=== PATIENT | female | born 1980 | race Caucasian/White ===

== ENCOUNTER 2016-05-23 18:49 | Emergency (ER) | payer MEDICARE, MEDICAID ==
[2016-05-23 19:55] LABS: HCG URINE NEGATIVE (NEGATIVE)
== END 2016-05-23 21:21 | disposition home or self-care (01) ==
LOC: D.ER 18:49
PROVIDERS: Emergency Medicine
DX: S92.501A Displaced unspecified fracture of right lesser toe(s), initial encounter for closed fracture (principal); W01.0XXA Fall on same level from slipping, tripping and stumbling without subsequent striking against object, initial encounter; Y93.89 Activity, other specified; Y92.019 Unspecified place in single-family (private) house as the place of occurrence of the external cause; F17.200 Nicotine dependence, unspecified, uncomplicated; F41.9 Anxiety disorder, unspecified; F32.9 Major depressive disorder, single episode, unspecified; T79.A0XA Compartment syndrome, unspecified, initial encounter

== ENCOUNTER 2016-06-07 18:29 | Emergency (ER) | payer MEDICARE, MEDICAID | END 2016-06-07 20:42 | disposition home or self-care (01) | LOC: D.ER 18:29 | DX: M54.30 Sciatica, unspecified side (principal); M62.830 Muscle spasm of back; S39.012A Strain of muscle, fascia and tendon of lower back, initial encounter; W19.XXXA Unspecified fall, initial encounter; Y93.89 Activity, other specified; Y92.89 Other specified places as the place of occurrence of the external cause; F17.200 Nicotine dependence, unspecified, uncomplicated ==

== ENCOUNTER 2016-07-01 12:06 | Emergency (ER) | payer MEDICAID | END 2016-07-01 13:23 | disposition home or self-care (01) | LOC: D.ER 12:06 | DX: M54.5 Low back pain (principal); Z91.81 History of falling; T79.A0XA Compartment syndrome, unspecified, initial encounter; F32.9 Major depressive disorder, single episode, unspecified; F17.200 Nicotine dependence, unspecified, uncomplicated ==

== ENCOUNTER 2016-07-26 14:42 | Emergency (ER) | payer MEDICAID | END 2016-07-26 17:55 | disposition home or self-care (01) | LOC: D.ER 14:42 | DX: S60.042A Contusion of left ring finger without damage to nail, initial encounter (principal); X58.XXXA Exposure to other specified factors, initial encounter; Y93.89 Activity, other specified; Y92.89 Other specified places as the place of occurrence of the external cause; T79.A0XA Compartment syndrome, unspecified, initial encounter; F32.9 Major depressive disorder, single episode, unspecified; F17.200 Nicotine dependence, unspecified, uncomplicated ==

== ENCOUNTER 2017-04-22 16:56 | Emergency (ER) | payer SELFPAY ==
[2017-04-22 17:38] LABS: COLOR YELLOW (YELLOW)
[2017-04-22 17:41] LABS: APPEARANCE CLEAR (CLEAR); BILIRUBIN NEGATIVE (NEGATIVE); GLUCOSE NEGATIVE (NEGATIVE); KETONE NEGATIVE (NEGATIVE); NITRITE NEGATIVE (NEGATIVE); PROTEIN NEGATIVE (NEGATIVE); SPECIFIC GRAVITY 1.025 (1.005-1.020); UROBILINOGEN NORMAL (NORMAL)
[2017-04-22 17:47] LABS: EPITHELIAL CELLS 0-5 /hpf (0-5); RED CELLS - URINE OCC /hpf (0-5); WHITE CELLS - URINE 0-5 /hpf (0-5)
[2017-04-22 17:48] LABS: BACTERIA MODERATE /hpf (NONE SEEN)
[2017-04-22 18:37] LABS: HCG URINE NEGATIVE (NEGATIVE)
== END 2017-04-22 19:25 | disposition home or self-care (01) ==
LOC: D.ER 16:56
PROVIDERS: Family Medicine; Physician Assistant Medical
DX: K59.00 Constipation, unspecified (principal); N39.0 Urinary tract infection, site not specified

== ENCOUNTER 2017-06-05 19:50 | Emergency (ER) | payer SELFPAY | END 2017-06-05 22:17 | disposition home or self-care (01) | LOC: D.ER 19:50 | DX: J20.9 Acute bronchitis, unspecified (principal); J01.90 Acute sinusitis, unspecified; R09.89 Other specified symptoms and signs involving the circulatory and respiratory systems ==

== ENCOUNTER 2017-06-10 14:03 | Emergency (ER) | payer SELFPAY | END 2017-06-10 17:42 | disposition home or self-care (01) | LOC: D.ER 14:03 | DX: S39.012A Strain of muscle, fascia and tendon of lower back, initial encounter (principal); W01.0XXA Fall on same level from slipping, tripping and stumbling without subsequent striking against object, initial encounter; Y93.89 Activity, other specified; Y92.019 Unspecified place in single-family (private) house as the place of occurrence of the external cause; F17.200 Nicotine dependence, unspecified, uncomplicated ==

== ENCOUNTER 2017-06-28 17:01 | Emergency (ER) | payer SELFPAY | END 2017-06-28 18:30 | disposition home or self-care (01) | LOC: D.ER 17:01 | DX: J01.90 Acute sinusitis, unspecified (principal); J20.9 Acute bronchitis, unspecified; F17.200 Nicotine dependence, unspecified, uncomplicated ==

== ENCOUNTER 2017-07-24 19:18 | Emergency (ER) | payer SELFPAY | END 2017-07-24 22:15 | disposition home or self-care (01) | LOC: D.ER 19:18 | DX: M54.5 Low back pain (principal); M62.838 Other muscle spasm; M79.605 Pain in left leg; M79.604 Pain in right leg ==

== ENCOUNTER 2017-08-16 07:02 | Emergency (ER) | payer MEDICARE | END 2017-08-16 09:00 | disposition home or self-care (01) | LOC: D.ER 07:02 | DX: S09.93XA Unspecified injury of face, initial encounter (principal); W18.31XA Fall on same level due to stepping on an object, initial encounter; Y93.89 Activity, other specified; Y92.019 Unspecified place in single-family (private) house as the place of occurrence of the external cause; F17.200 Nicotine dependence, unspecified, uncomplicated ==

== ENCOUNTER 2017-10-17 17:28 | Emergency (ER) | payer MEDICARE ==
[~2017-10-17] VITALS: Ht 162.6 cm; Wt 65.9 kg
[2017-10-17 17:37] VITALS: Ht 162.6 cm; Wt 65.9 kg
[2017-10-17] MEDS ORDERED: CYMBALTA30 MG PO (17:38)
[2017-10-17] MEDS ORDERED: CHANTIX 1 MG TAB1 MG PO (17:39)
[2017-10-17 18:33] LABS: HCG URINE NEGATIVE (NEGATIVE)
[2017-10-17 18:37] LABS: BASOPHILS 0.5 % (0-2); HEMATOCRIT 38.6 % (36.0-48.0); IMMATURE GRANULOCYTES 0.2 % (0-5); LYMPHOCYTES 29.2 % (15-50); MCH 30.3 pg (26.0-34.0); MCHC 33.7 g/dL (31.0-37.0); MEAN PLATELET VOLUME 11.2 fL (7.4-10.4); MONOCYTES 10.7 % (2-11); NEUTROPHILS 57.4 % (40-80); PLATELET COUNT 229 10x3/uL (130-400); RBC 4.29 10x6/uL (4.00-5.40); RDW 13.8 % (11.5-14.5); WBC 5.5 10x3/uL (4.8-10.8)
[2017-10-17 18:42] LABS: ALBUMIN 3.8 g/dL (3.4-5.0); ALKALINE PHOSPHATASE 88 U/L (46-116); ALT (SGPT) 26 U/L (10-68); BILIRUBIN - TOTAL 0.21 mg/dL (0.2-1.3); CALC OSMOLALITY 271 mosm/kg (275-300); CALCIUM 8.4 mg/dL (8.5-10.1); CARBON DIOXIDE 26.9 mmol/L (21.0-32.0); CHLORIDE - SERUM 105 mmol/L (98-107); CREATININE - SERUM 0.7 mg/dL (0.6-1.3); GLUCOSE 75 mg/dL (74-106); POTASSIUM - SERUM 4.1 mmol/L (3.5-5.1); SODIUM 137 mmol/L (136-145); UREA NITROGEN 11 mg/dL (7-18); eGFR NON AFRICAN AMERICAN > 90 mL/min (90-120)
[2017-10-17 18:54] LABS: APPEARANCE CLEAR (CLEAR); BILIRUBIN NEGATIVE (NEGATIVE); COLOR YELLOW (YELLOW); GLUCOSE NEGATIVE (NEGATIVE); KETONE NEGATIVE (NEGATIVE); NITRITE NEGATIVE (NEGATIVE); PROTEIN NEGATIVE (NEGATIVE); SPECIFIC GRAVITY 1.025 (1.005-1.020); UROBILINOGEN NORMAL (NORMAL)
[2017-10-17 19:05] LABS: UDS - AMPHET NEGATIVE QUAL (NEGATIVE); UDS - BARB NEGATIVE QUAL (NEGATIVE); UDS - BENZO NEGATIVE QUAL (NEGATIVE); UDS - COCAINE NEGATIVE QUAL (NEGATIVE); UDS - OPIATE NEGATIVE QUAL (NEGATIVE); UDS - PCP NEGATIVE QUAL (NEGATIVE); UDS - THC NEGATIVE QUAL (NEGATIVE)
[2017-10-17] MEDS ORDERED: ROBAXIN500 MG PO (20:49)
[2017-10-17 23:00] VITALS: BP 122/80
== END 2017-10-17 21:33 | disposition home or self-care (01) ==
LOC: D.ER 17:28
PROVIDERS: Emergency Medicine
DX: N93.9 Abnormal uterine and vaginal bleeding, unspecified (principal); T79.A0XA Compartment syndrome, unspecified, initial encounter; X58.XXXA Exposure to other specified factors, initial encounter; F17.200 Nicotine dependence, unspecified, uncomplicated

== ENCOUNTER 2017-11-03 15:52 | Emergency (ER) | payer MEDICARE ==
[~2017-11-03] VITALS: Ht 162.6 cm; Wt 63.6 kg
[~2017-11-03 15:52] MED LIST: CHANTIX 1 MG TAB1 MG PO; CYMBALTA30 MG PO; ROBAXIN500 MG PO
[2017-11-03 15:56] VITALS: Ht 162.6 cm; Wt 63.6 kg
[2017-11-03] MEDS ORDERED: NEURONTIN 300300 MG PO (15:57)
[2017-11-03 16:23] LABS: BASOPHILS 0.2 % (0-2); EOSINOPHILS 0.7 % (0-7); HEMATOCRIT 46.2 % (36.0-48.0); HEMOGLOBIN 15.8 g/dL (12-16); IMMATURE GRANULOCYTES 0.3 % (0-5); LYMPHOCYTES 17.3 % (15-50); MCH 30.9 pg (26.0-34.0); MCHC 34.2 g/dL (31.0-37.0); MCV 90.2 fL (80.0-100.0); MONOCYTES 7.9 % (2-11); NEUTROPHILS 73.6 % (40-80); PLATELET COUNT 349 10x3/uL (130-400); RBC 5.12 10x6/uL (4.00-5.40); RDW 13.6 % (11.5-14.5); WBC 12.2 10x3/uL (4.8-10.8)
[2017-11-03 16:30] LABS: APPEARANCE TURBID (CLEAR); BACTERIA MODERATE /hpf (NONE SEEN); BILIRUBIN NEGATIVE (NEGATIVE); COLOR RED (YELLOW); EPITHELIAL CELLS 0-5 /hpf (0-5); GLUCOSE NEGATIVE (NEGATIVE); KETONE NEGATIVE (NEGATIVE); MUCUS <1+ /lpf (NONE SEEN); NITRITE NEGATIVE (NEGATIVE); PROTEIN 3+ mg/dL (NEGATIVE); RED CELLS - URINE >50 /hpf (0-5); SPECIFIC GRAVITY 1.015 (1.005-1.020); UROBILINOGEN NORMAL (NORMAL); WHITE CELLS - URINE >50 /hpf (0-5)
[2017-11-03 17:11] LABS: ALBUMIN 3.8 g/dL (3.4-5.0); ALKALINE PHOSPHATASE 94 U/L (46-116); ALT (SGPT) 35 U/L (10-68); BILIRUBIN - TOTAL 0.23 mg/dL (0.2-1.3); CALC OSMOLALITY 276 mosm/kg (275-300); CALCIUM 8.9 mg/dL (8.5-10.1); CARBON DIOXIDE 23.8 mmol/L (21.0-32.0); CHLORIDE - SERUM 105 mmol/L (98-107); CREATININE - SERUM 0.7 mg/dL (0.6-1.3); GLUCOSE 101 mg/dL (74-106); POTASSIUM - SERUM 4.3 mmol/L (3.5-5.1); PROTEIN - SERUM 7.4 g/dL (6.4-8.2); SODIUM 138 mmol/L (136-145); UREA NITROGEN 15 mg/dL (7-18); eGFR NON AFRICAN AMERICAN > 90 mL/min (90-120)
[2017-11-03 17:48] LABS: HCG URINE NEGATIVE (NEGATIVE)
[2017-11-03] MEDS ORDERED: MACROBID100 MG PO (19:21)
[2017-11-03] MEDS ORDERED: TYLENOL W/CODEI1 TAB PO (19:21)
[2017-11-03 19:57] VITALS: BP 132/77
== END 2017-11-03 19:58 | disposition home or self-care (01) ==
LOC: D.ER 15:52
PROVIDERS: Emergency Medicine
DX: N39.0 Urinary tract infection, site not specified (principal); N83.291 Other ovarian cyst, right side; R31.9 Hematuria, unspecified; F17.200 Nicotine dependence, unspecified, uncomplicated

== ENCOUNTER 2017-11-08 18:56 | Emergency (ER) | payer MEDICARE ==
[~2017-11-08] VITALS: Ht 162.6 cm; Wt 63.6 kg
[~2017-11-08 18:56] MED LIST changes: +MACROBID100 MG PO; +NEURONTIN 300300 MG PO; +TYLENOL W/CODEI1 TAB PO
[2017-11-08 19:04] VITALS: Ht 162.6 cm; Wt 63.6 kg
[2017-11-08 20:24] LABS: BASOPHILS 0.5 % (0-2); EOSINOPHILS 1.1 % (0-7); HEMATOCRIT 41.1 % (36.0-48.0); HEMOGLOBIN 13.8 g/dL (12-16); IMMATURE GRANULOCYTES 0.4 % (0-5); MCH 30.4 pg (26.0-34.0); MCHC 33.6 g/dL (31.0-37.0); MCV 90.5 fL (80.0-100.0); MEAN PLATELET VOLUME 10.6 fL (7.4-10.4); MONOCYTES 9.5 % (2-11); NEUTROPHILS 58.5 % (40-80); RBC 4.54 10x6/uL (4.00-5.40); RDW 13.9 % (11.5-14.5); WBC 7.3 10x3/uL (4.8-10.8)
[2017-11-08 20:26] LABS: PLATELET COUNT 277 10x3/uL (130-400)
[2017-11-08 20:38] LABS: ALBUMIN 3.5 g/dL (3.4-5.0); ALKALINE PHOSPHATASE 88 U/L (46-116); ALT (SGPT) 32 U/L (10-68); BILIRUBIN - TOTAL 0.31 mg/dL (0.2-1.3); CALC OSMOLALITY 274 mosm/kg (275-300); CALCIUM 8.4 mg/dL (8.5-10.1); CARBON DIOXIDE 24.7 mmol/L (21.0-32.0); CHLORIDE - SERUM 106 mmol/L (98-107); CREATININE - SERUM 0.6 mg/dL (0.6-1.3); GLUCOSE 82 mg/dL (74-106); POTASSIUM - SERUM 4.3 mmol/L (3.5-5.1); PROTEIN - SERUM 7.2 g/dL (6.4-8.2); SODIUM 138 mmol/L (136-145); UREA NITROGEN 12 mg/dL (7-18); eGFR NON AFRICAN AMERICAN > 90 mL/min (90-120)
[2017-11-08] MEDS ORDERED: HYDROCODON-ACE1 EAC7 PO (22:20)
[2017-11-08 23:57] VITALS: BP 102/66
== END 2017-11-08 23:58 | disposition home or self-care (01) ==
LOC: D.ER 18:56
PROVIDERS: Family Medicine
DX: M25.561 Pain in right knee (principal); S86.911A Strain of unspecified muscle(s) and tendon(s) at lower leg level, right leg, initial encounter; X58.XXXA Exposure to other specified factors, initial encounter; Y93.89 Activity, other specified; Y92.019 Unspecified place in single-family (private) house as the place of occurrence of the external cause; F17.200 Nicotine dependence, unspecified, uncomplicated

== ENCOUNTER 2017-12-10 10:31 | Emergency (ER) | payer MEDICARE ==
[~2017-12-10] VITALS: Ht 162.6 cm; Wt 61.4 kg
[~2017-12-10 10:31] MED LIST changes: +HYDROCODON-ACE1 EAC7 PO
[2017-12-10 10:42] VITALS: Ht 162.6 cm; Wt 61.4 kg
[2017-12-10] MEDS ORDERED: VOLTAREN75 MG PO (12:13)
[2017-12-10 12:59] VITALS: BP 101/68
== END 2017-12-10 13:00 | disposition home or self-care (01) ==
LOC: D.ER 10:31
DX: M79.672 Pain in left foot (principal); R20.2 Paresthesia of skin

== ENCOUNTER 2017-12-30 14:05 | Emergency (ER) | payer MEDICARE ==
[~2017-12-30] VITALS: Ht 162.6 cm; Wt 59.1 kg
[~2017-12-30 14:05] MED LIST changes: +VOLTAREN75 MG PO
[2017-12-30 14:18] VITALS: Ht 162.6 cm; Wt 59.1 kg
[2017-12-30 14:57] LABS: BASOPHILS 0.3 % (0-2); EOSINOPHILS 1.8 % (0-7); HEMATOCRIT 42.5 % (36.0-48.0); HEMOGLOBIN 14.2 g/dL (12-16); IMMATURE GRANULOCYTES 0.2 % (0-5); LYMPHOCYTES 10.3 % (15-50); MCH 30.6 pg (26.0-34.0); MCHC 33.4 g/dL (31.0-37.0); MCV 91.6 fL (80.0-100.0); MEAN PLATELET VOLUME 10.7 fL (7.4-10.4); MONOCYTES 5.2 % (2-11); NEUTROPHILS 82.2 % (40-80); PLATELET COUNT 262 10x3/uL (130-400); RBC 4.64 10x6/uL (4.00-5.40); RDW 14.6 % (11.5-14.5); WBC 8.8 10x3/uL (4.8-10.8)
[2017-12-30 15:29] LABS: ALBUMIN 3.7 g/dL (3.4-5.0); ALKALINE PHOSPHATASE 99 U/L (46-116); ALT (SGPT) 46 U/L (10-68); BILIRUBIN - TOTAL 0.57 mg/dL (0.2-1.3); CALC OSMOLALITY 275 mosm/kg (275-300); CALCIUM 8.8 mg/dL (8.5-10.1); CARBON DIOXIDE 25.3 mmol/L (21.0-32.0); CHLORIDE - SERUM 105 mmol/L (98-107); CREATININE - SERUM 0.7 mg/dL (0.6-1.3); GLUCOSE 84 mg/dL (74-106); POTASSIUM - SERUM 4.3 mmol/L (3.5-5.1); PROTEIN - SERUM 7.8 g/dL (6.4-8.2); SODIUM 140 mmol/L (136-145); UREA NITROGEN 8 mg/dL (7-18); eGFR NON AFRICAN AMERICAN > 90 mL/min (90-120)
[2017-12-30] MEDS ORDERED: VENTOLIN HFA18 GM INH (16:39)
[2017-12-30] MEDS ORDERED: VIBRAMYCIN 100100 MG PO (16:39)
[2017-12-30] MEDS ORDERED: PHENERGAN DM SYR5 ML PO (16:41)
[2017-12-30 17:17] VITALS: BP 108/68
== END 2017-12-30 17:17 | disposition home or self-care (01) ==
LOC: D.ER 14:05
PROVIDERS: Emergency Medicine
DX: J01.90 Acute sinusitis, unspecified (principal); J40 Bronchitis, not specified as acute or chronic; R51 Headache; F17.200 Nicotine dependence, unspecified, uncomplicated

== ENCOUNTER → 2018-09-08 13:13 | Outpatient (CLI) | payer OTHER ==
[2017-12-30 14:18] VITALS: BMI 22.3
[~2018-09-08 13:13] MED LIST changes: +PHENERGAN DM SYR5 ML PO; +VENTOLIN HFA18 GM INH; +VIBRAMYCIN 100100 MG PO
== END | disposition home or self-care (01) ==
LOC: D.RAD 13:00
PROVIDERS: ATTEND Pediatrics
DX: Z02.71 Encounter for disability determination (principal)

== ENCOUNTER 2019-04-19 14:44 | Emergency (ER) | payer MEDICARE ==
[~2019-04-19] VITALS: Ht 162.6 cm; Wt 59.1 kg
[2019-04-19 15:03] VITALS: Ht 162.6 cm; Wt 59.1 kg
[2019-04-19] MEDS ORDERED: ALBUTEROL SULF8.5 GM INH (16:12)
[2019-04-19] MEDS ORDERED: ZPAK PO (16:12)
[2019-04-19] MEDS ORDERED: TESSALON PERLE100 MG PO (16:12)
[2019-04-19 16:30] VITALS: BP 160/87
== END 2019-04-19 16:31 | disposition home or self-care (01) ==
LOC: D.ER 14:44
DX: J40 Bronchitis, not specified as acute or chronic (principal); J32.9 Chronic sinusitis, unspecified; Z72.0 Tobacco use

== ENCOUNTER 2019-09-07 15:09 | Emergency (ER) | payer MEDICARE, MEDICAID ==
[~2019-09-07] VITALS: Ht 162.6 cm; Wt 61.4 kg
[~2019-09-07 15:09] MED LIST changes: +ALBUTEROL SULF8.5 GM INH; +TESSALON PERLE100 MG PO; +ZPAK PO
[2019-09-07 15:18] VITALS: Ht 162.6 cm; Wt 61.4 kg
[2019-09-07 16:07] LABS: CALC OSMOLALITY 275 mosm/kg (275-300); CALCIUM 8.3 mg/dL (8.5-10.1); CARBON DIOXIDE 27.8 mmol/L (21.0-32.0); CHLORIDE - SERUM 103 mmol/L (98-107); CREATININE - SERUM 0.9 mg/dL (0.6-1.3); GLUCOSE 94 mg/dL (74-106); POTASSIUM - SERUM 3.8 mmol/L (3.5-5.1); SODIUM 138 mmol/L (136-145); UREA NITROGEN 13 mg/dL (7-18); eGFR NON AFRICAN AMERICAN 74 mL/min (90-120)
[2019-09-07 16:22] LABS: ALBUMIN 3.4 g/dL (3.4-5.0); ALKALINE PHOSPHATASE 94 U/L (30-120); ALT (SGPT) 28 U/L (10-68); BILIRUBIN - TOTAL 0.23 mg/dL (0.2-1.3); CKMB 2.8 U/L (0.0-3.6); CREATINE KINASE 139 UL (21-215); MAGNESIUM - SERUM 1.7 mg/dL (1.8-2.4)
[2019-09-07 16:23] LABS: TROPONIN-I < 0.017 ng/mL (0.000-0.060)
[2019-09-07 16:24] LABS: INR 1.04 (0.85-1.17); PROTIME 13.6 SECONDS (11.6-15.0)
[2019-09-07 16:25] LABS: APTT 35.1 SECONDS (22.8-39.4)
[2019-09-07 16:44] LABS: BASOPHILS 0.3 % (0-2); EOSINOPHILS 1.8 % (0-7); HEMATOCRIT 39.2 % (36.0-48.0); HEMOGLOBIN 12.8 g/dL (12-16); IMMATURE GRANULOCYTES 0.3 % (0-5); LYMPHOCYTES 20.8 % (15-50); MCH 28.4 pg (26.0-34.0); MCHC 32.7 g/dL (31.0-37.0); MCV 87.1 fL (80.0-100.0); MEAN PLATELET VOLUME 10.6 fL (7.4-10.4); MONOCYTES 8.3 % (2-11); NEUTROPHILS 68.5 % (40-80); PLATELET COUNT 252 10x3/uL (130-400); RDW 14.3 % (11.5-14.5); WBC 6.1 10x3/uL (4.8-10.8)
[2019-09-07] MEDS ORDERED: VOLTAREN75 MG PO (16:50)
[2019-09-07] MEDS ORDERED: BACLOFEN20 M1 PO (16:50)
[2019-09-07 17:07] VITALS: BP 133/85
== END 2019-09-07 17:07 | disposition home or self-care (01) ==
LOC: D.ER 15:09
PROVIDERS: Family Medicine
DX: M25.512 Pain in left shoulder (principal); M77.9 Enthesopathy, unspecified

== ENCOUNTER 2019-09-29 19:52 | Emergency (ER) | payer MEDICARE, MEDICAID ==
[~2019-09-29] VITALS: Ht 162.6 cm; Wt 61.4 kg
[~2019-09-29 19:52] MED LIST changes: +BACLOFEN20 M1 PO
[2019-09-29 20:03] VITALS: BP 132/74; Ht 162.6 cm; Wt 61.4 kg
[2019-09-29] MEDS ORDERED: AMOXICILLIN500 M1 PO (20:08)
[2019-09-29] MEDS ORDERED: RELAFEN500 MG PO (21:21)
[2019-09-29] MEDS ORDERED: STERAPRED 5MG 65 M1 PO (21:21)
[2019-09-29] MEDS ORDERED: OMEPRAZOLE20 M1 PO (21:21)
== END 2019-09-29 21:46 | disposition home or self-care (01) ==
LOC: D.ER 19:52
DX: R07.89 Other chest pain (principal)